=== PATIENT | male | born 1955 | race Caucasian/White ===

== ENCOUNTER 2020-04-12 02:18 | Emergency (ER) | payer MEDICARE, OTHER ==
[~2020-04-12] VITALS: Ht 185.4 cm; Wt 70.3 kg
[2020-04-12 02:35] VITALS: BP 128/81
== END 2020-04-12 02:35 | disposition home or self-care (01) ==
LOC: ER 02:27
DX: R21 Rash and other nonspecific skin eruption (principal)
CPT/HCPCS: A4663